=== PATIENT | male | born 1995 | race Caucasian/White ===

== ENCOUNTER → 2019-04-20 13:04 | Outpatient (CLI) | payer OTHER, SELFPAY ==
--- NOTE | 2019-04-20 13:11 | XR_ITS ---
XR hand RT 2V CLINICAL INDICATION: Follow-up fracture ITS.REASON: 5th mc fracture, out of splint, call office first ORDERING PHYSICIAN: Jina Murphy MD PATIENT AGE: 23 years Comparison: None FINDINGS: Lateral view only is obtained and compared to 04/15/2019. The fracture at the base of the fifth metacarpal poorly demonstrated due to overlap of the other metacarpals. No significant displacement identified. IMPRESSION: Good alignment of the metacarpals on single lateral view. Fracture is not well delineated due to the other overlying metacarpals. Cannot adequately evaluate for the healing process
== END ==
PROVIDERS: PCP Internal Medicine; Visit Provider Orthopaedic Surgery
DX: S62.91XA Unspecified fracture of right hand, initial encounter for closed fracture (principal)
CPT/HCPCS: 73120

== ENCOUNTER → 2019-05-04 12:38 | Outpatient (CLI) | payer OTHER, SELFPAY ==
--- NOTE | 2019-05-04 12:44 | XR_ITS ---
XR hand RT min 3V HISTORY: Follow-up fracture ITS.REASON: fracture of right hand ORDERING PHYSICIAN: Jina Murphy MD PATIENT AGE: 23 years COMPARISON: 04/15/2019 FINDINGS: Minimally displaced fracture once again noted involving the base of the fifth metacarpal which does not appear significant change. Fracture line may be slightly less visible on the oblique view. IMPRESSION: No change minimally displaced fracture base of fifth metacarpal
== END ==
PROVIDERS: PCP Internal Medicine; Visit Provider Orthopaedic Surgery
DX: S62.91XA Unspecified fracture of right hand, initial encounter for closed fracture (principal)
CPT/HCPCS: 73130

== ENCOUNTER → 2019-06-13 13:30 | Outpatient (CLI) | payer OTHER, SELFPAY ==
--- NOTE | 2019-06-13 13:35 | XR_ITS ---
PROCEDURE: XR HAND RT MIN 3V CLINICAL INDICATION: Rt hand fracture Follow-up fracture COMPARISON: from 05/04/2019 FINDINGS: Healing fractures present vomiting the base of the 5th metacarpal. Fracture line is barely visible and is not significantly displaced. Other findings:None. IMPRESSION: Healing fracture base of 5th metacarpal with good alignment Dictated by: Vishal Walter MD 06/13/2019 14:33 Signed by: <Electronically signed by Vishal Walter MD in [place]> 06/13/2019 14:33
== END ==
PROVIDERS: PCP Internal Medicine; Visit Provider Orthopaedic Surgery
DX: S62.91XA Unspecified fracture of right hand, initial encounter for closed fracture (principal)
CPT/HCPCS: 73130

== ENCOUNTER → 2023-03-04 23:13 | Outpatient (CLI) | payer BC, SELFPAY ==
[2023-03-04 19:22] LABS: Basophils # 0.1 K/mm3 (0-0.2); Basophils % 0.5 % (0.1-2.0); Eosinophils # 0.2 K/mm3 (0.0-0.4); Eosinophils % 2.1 % (0.1-12.0); Lymphocytes # 2.4 K/mm3 (0.7-4.5); Lymphocytes % 23.3 % (10-50); Mean Corpuscular HGB Conc 34.1 g/dL (31.8-35.4); Mean Corpuscular Volume 84.8 fl (80-94); Mean Platelet Volume 8.9 fl (7.4-10.4); Monocytes # 0.5 K/mm3 (0.1-1.0); Monocytes % 4.9 % (1.7-9.3); Neutrophils # 7.3 K/mm3 (1.8-7.8); Neutrophils % 69.2 % (37.0-80.0); Platelet Count 380 K/mm3 (142-424); Red Blood Count 6.24 M/mm3 (4.60-6.20); Red Cell Distribution Width 13.2 % (11.5-17.5); White Blood Count 10.5 K/mm3 (4.8-10.8)
[2023-03-04 19:53] LABS: Hemoglobin 18.1 g/dL (14.1-18.0)
[2023-03-04 20:12] LABS: Alanine Aminotransferase 95 U/L (12-78); Albumin Level 4.9 g/dl (3.5-5.0); Albumin/Globulin Ratio 1.5 (1.1-1.8); Alkaline Phosphatase 120 U/L (38-126); Aspartate Amino Transferase 85 U/L (17-59); Bilirubin,Total 2.4 mg/dl (0.2-1.3); Blood Urea Nitrogen 7 mg/dl (9-20); Calcium 9.4 mg/dl (8.4-10.2); Carbon Dioxide 25 mmol/L (22.0-30.0); Chloride 95 mmol/L (98-107); Cholesterol 243 mg/dl (140-200); Estimated Glomerular Filt Rate 159 ml/min (>60); GFR (African American) 193 ML/MIN (>60); Globulin 3.2 g/dL (1.3-3.2); Glucose 183 mg/dl (74-100); Sodium 137 mmol/L (136-145); Total Protein,Serum 8.1 g/dl (6.3-8.2); Triglycerides 181 mg/dl (30-150); VLDL Cholesterol 36 mg/dL (0-40)
[2023-03-04 20:18] LABS: Chol/HDL Ratio 6.6 (1-3.5); HDL Cholesterol 37 mg/dl (40-60)
[2023-03-04 20:23] LABS: Direct LDL Cholesterol 175.88 mg/dL (100-129)
[2023-03-04 20:43] LABS: Thyroid Stimulating Hormone 2.28 uIU/mL (0.465-4.68)
[2023-03-04 21:34] LABS: Hemoglobin A1C 7.8 % (4.0-6.0)
== END ==
PROVIDERS: PCP Nurse Practitioner Family; Visit Provider Nurse Practitioner Family
DX: I10 Essential (primary) hypertension (principal); R73.09 Other abnormal glucose
CPT/HCPCS: 80053; 80061; 83036; 84443; 85025

== ENCOUNTER → 2023-05-27 12:52 | Outpatient (CLI) | payer BC, SELFPAY | PROVIDERS: PCP Nurse Practitioner Family; Visit Provider Nurse Practitioner Family | DX: G47.30 Sleep apnea, unspecified (principal); R06.83 Snoring; R40.0 Somnolence ==